=== PATIENT | female | born 1980 | race Caucasian/White ===

== ENCOUNTER 2018-01-14 21:17 | Emergency (ER) | payer BC ==
[2018-01-14 21:24] VITALS: BP 123/85
--- NOTE | 2018-01-14 21:45 | EDPHY ---
H & P Stated Complaint: left calf pain sent here from urgent care to rule out blood clot Time Seen by Provider: 01/14/18 21:44 HPI/ROS: HPI: This is a 37-year-old female who presents with Chief Complaint: Left calf swelling; sent from urgent care to rule out blood clot Location: Left calf Quality: Swelling Duration: 24 hr Signs and Symptoms: No bleeding, no radiation, no numbness, no weakness, no tingling, no incontinence, no decreased range of motion, + swelling, + pain, no fever Timing: Acute Severity: Moderate Context: Patient reports that she recently moved from [facility] to [facility] presents from the urgent care with concerns of a blood clot in her left lower extremity. She has noticed over the last 24 hr that she has had left posterior calf swelling and pain. She reports that it feels different than muscle cramps or charley horse. The pain is deep and intense. She reports that she had a short plane ride from [facility] to [facility] approximately 2 weeks ago. She has been on packing her house and going up and down the stairs this is not new behavior for her as she had a 2 story home in [facility]. She is a nonsmoker. She does take control pills. She denies any shortness of breath/chest pain/palpitations. She has no remembers of any injury or overuse. Denies any skin color changes. She wears Birkenstocks. Modifying Factors: None Comment: ROS: see HPI Constitutional: No fever, no chills, no weight loss Eyes: No blurred vision Respiratory: No shortness of breath, no cough Cardiovascular: No chest pain Gastrointestinal: No nausea, no vomiting no diarrhea Genitourinary: No dysuria Extremities: No myalgias Neurologic: No weakness, no numbness Skin: No rashes Hematologic: No bruising, no bleeding MEDICAL/SURGICAL/SOCIAL HISTORY: Medical history: Depression, anxiety, takes oral control pills Surgical history: Denies Social history: Nonsmoker CONSTITUTIONAL: middle aged female, awake and alert, no obvious distress HEENT: Atraumatic and normocephalic, PERRL, EOMI. Nares patent; no rhinorrhea; no nasal mucosal edema. Tympanic membranes clear. Oropharynx clear, no exudate and moist pink mucosa. Airway patent. No lymphadenopathy. No meningismus. Cardiovascular: Normal S1/S2, regular rate, regular rhythm, without murmur rub or gallop. PULMONARY/CHEST: Symmetrical and nontender. Clear to auscultation bilaterally. Good air movement. No accessory muscle usage. ABDOMEN: Soft, nondistended, nontender, no rebound, no guarding, no peritoneal signs, no masses or organomegaly. No CVAT. EXTREMITIES: 2/2 pulses, strength 5/5, left KNEE: no effusion, no medial and lateral joint line tenderness, full extension to 180, flexion to 120. No pain with varus and valgus exam. No pain with anterior drawer or posterior drawer test. Mild posterior calf reproducible tenderness; no palpable cord. No varicose veins. no deformities, no clubbing, no cyanosis or edema. Left calf and right calf appear to be similar inside. NEUROLOGICAL: no focal neuro deficits. GCS 15. SKIN: Warm and dry, no erythema. no rash. Good capillary refill. Source: Patient Exam Limitations: No limitations - Personal History LMP (Females 10-55): 8-14 Days Ago Current Tetanus/Diphtheria Vaccine: Yes Current Tetanus Diphtheria and Acellular Pertussis (TDAP): Yes - Medical/Surgical History Hx Asthma: Yes Hx Chronic Respiratory Disease: No Hx Diabetes: No Hx Cardiac Disease: No Hx Renal Disease: No Hx Cirrhosis: No Hx Alcoholism: No Hx HIV/AIDS: No Hx Splenectomy or Spleen Trauma: No Other PMH: - Social History Smoking Status: Never smoked Constitutional: Initial Vital Signs Temperature (C) 36.8 C 01/14/18 21:22 Heart Rate 78 01/14/18 21:22 Respiratory Rate 16 01/14/18 21:22 Blood Pressure 123/85 H 01/14/18 21:22 O2 Sat (%) 96 01/14/18 21:22 O2 Delivery Mode Room Air Allergies/Adverse Reactions: No Known Allergies Allergy (Unverified 01/14/18 21:25) Home Medications: Medication Instructions Recorded Lexapro 01/14/18 Microgestin 21 1.5-30 Tab 01/14/18 Prochlorperazine Maleate 01/14/18 Xanax 01/14/18 Medical Decision Making - Diagnostics Imaging Results: Imaging Impressions Extremity Venous Study 01/14/18 21:36 Impression: No deep venous thrombosis in the left lower extremity. These findings were discussed by telephone with Dr. Steven More at 22:35 hour, 01/14/2018. ED Course/Re-evaluation: Left lower extremity ultrasound shows no signs of deep venous thrombosis. No signs of neurovascular compromise/tenting of skin/compartment syndrome/ extremities and joints examined above and below area of concern and are neurovascularly intact. Information laboratory studies to determine if she has electrolyte imbalance. Patient politely declined. She reports that she has no prior history and does not believe that he has this at this time. She believes that she has a muscle strain. There are no skin integrity issues. Differential Diagnosis: Leg swelling including but not limited to hypoalbuminemia, congestive heart failure, cor pulmonale, chronic venous stasis and DVT. Departure - Departure Disposition: Home, Routine, Self-Care Clinical Impression: Pain of left calf Gastrocnemius muscle strain Qualifiers: Encounter type: initial encounter Laterality: left Qualified Code(s): S86.112A - Strain of other muscle(s) and tendon(s) of posterior muscle group at lower leg level, left leg, initial encounter Condition: Fair Instructions: Leg Cramps (ED) Additional Instructions: Take Tylenol 650 mg every 4 hours and/or Ibuprofen 600 mg every 8 hours with food as needed for pain. Perform calf stretching exercises daily. Apply moist heat for 30 minutes at a time; 2-3 times per day for the next 1-2 days. Follow-up with your primary care provider if symptoms do not resolve in the next week. Return to the ER immediately if you experience new or worsening pain, discoloration, numbness, tingling, or any other symptoms that concern you. Referrals: PCP Not In,Dictionary [Medical Doctor] - As per Instructions
== END 2018-01-14 23:14 | disposition home or self-care (01) ==
DX: S86.112A Strain of other muscle(s) and tendon(s) of posterior muscle group at lower leg level, left leg, initial encounter (principal); J45.909 Unspecified asthma, uncomplicated; X58.XXXA Exposure to other specified factors, initial encounter; Y99.8 Other external cause status; Y93.89 Activity, other specified